=== PATIENT | male | born 1990 | race Caucasian/White ===

== ENCOUNTER 2017-07-21 09:50 | Emergency (ER) | payer SELFPAY ==
[~2017-07-21] VITALS: Ht 185.4 cm; Wt 79.4 kg
--- OUTSIDE RECORDS SUMMARY | 2017-07-21 10:19 | XMS REPORT ---
Author Author JANEENADELINA [facility] Medical Staff Organization [facility] Address [address], [place] [id number] Phone [phone] Summary purpose TRANSITION OF CARE AUTO GENERATION Chief Complaint and Reason for Visit No authorized Reason for Visit (Admitting Diagnosis) is available for this visit. Problem list No authorized problems tracked for continuity of care are available for this visit. Encounters No authorized problems tracked for encounter diagnoses are available for this visit. Medications No medications recorded for this patient visit Allergies, adverse reactions, alerts Allergen Category Ingredient Status Reaction Severity Onset Penicillins Drug Allergy Penicillins Confirmed or Verified Immunizations No immunizations recorded for this patient visit Relevant diagnostic tests and/or laboratory data No authorized results are available for this patient visit History of procedures No procedures recorded for this patient visit. Functional status Functional Status Finding Observation Time Ambulation Asst Dev none :37 Abdomen Appearance flat :37 West no :37 Urination normal :37 Quality sym/unlabored :37 Cough absent :37 Secretions no :37 Airway natural :37 Oxygen no : Temp >100.4 no :37 Temp <96.8 no :37 Chills with rigors no :37 HR > 90bpm yes :37 Respirations > 20 no :37 Systolic <90 no :37 headache stiff neck no :37 Rapid Resp no :30 Nursing Note pt dismissed to home with rxs for clindamycin and hydrocodone, verbalized understanding of all instructions. :15 Vital signs Type Value Date Respiration Rate 18breaths per minute :15 Pulse 87beats per minute :15 Oxygen Saturation 98% :15 BP Systolic 115mmHg :15 BP Diastolic 78mmHg :15 Temperature 98.0F :15 Social history Type Value Smoking Status CURRENT EVERY DAY SMOKER Treatment Plan No treatment plan text is available for this visit. Hospital discharge instructions Dismissal Condition good Disposition on DC home DC Inst/Educ Give yes Med/Side Effects Rev yes PNE Vac none Flu Vac none Tetanus Vac none
--- OUTSIDE RECORDS SUMMARY | 2017-07-21 10:19 | XMS REPORT | Continuity of Care Document ---
Demographics x Preferred Language Unknown Marital Status Unknown Taoist Affiliation Unknown Race Unknown Ethnic Group Unknown Author Author [facility] Organization [facility] Address Unknown Phone Unavailable Allergies Active Description Code Type Severity Reaction Onset Reported/Identified Relationship to Patient Clinical Status Yes Penicillins 476 Drug Allergy N/ A N/A Confirmed or Verified Medications There is no data. Problems There is no data. Procedures There is no data. Results There is no data. Encounters ACCT No. Visit Date/Time Discharge Status Pt. Type Provider Facility Loc./Unit Complaint [id number] 05/04/2015 15:31:00 05/04/2015 16:13:00 DIS Emergency [facility] EMR
--- NOTE | 2017-07-21 10:38 | ED EENT ---
History of Present Illness General Chief Complaint: General Problems/Pain Stated Complaint: MOUTH PAIN,N/V,FEVER Source: patient, other (GF) Exam Limitations: no limitations History of Present Illness Date Seen by Provider: Jul 21, 2017 Time Seen by Provider: 10:25 Initial Comments Patient presents to ER by private conveyance with his significant other and a chief complaint that for the last 2 days she's had significant pain and swelling on the left lower jaw where he has some bad teeth as well as some bleeding from his gums for the past several months. He has not seen a dentist in years. He has been taking Motrin with modest relief of his pain. Also he had some nausea and vomiting 2 days ago and subjective feeling of fever, chills, diaphoresis and concern he might have influenza. He does smoke about a pack a day of cigarettes. Allergies and Home Medications Allergies Uncoded Allergies: PENICILLIN (Allergy, Unknown, 07/21/17) Home Medications Clindamycin HCl 300 Mg Capsule, 300 MG PO TID Prescribed by: RONDA SIMPSON on 07/21/17 1041 Review of Systems Constitutional: chills, diaphoresis, fever, malaise Eyes: Denies Blindness, Denies Blurred Vision, Denies Pain Ears: Denies Dizziness, Denies Pain Nose: denies clots, denies congestion Mouth: denies clots, pain, swelling, bloody discharge Throat: denies pain, denies swelling Respiratory: cough, No phlegm, No short of breath, No wheezing Cardiovascular: No chest pain, No palpitations Gastrointestinal: No abdominal pain, No constipation, nausea, vomiting Musculoskeletal: No joint pain, No joint swelling Past Nxnqxol-Gpfnvc-Wrsyom Hx Patient Social History Alcohol Use: Occasionally Uses Alcohol Beverage of Choice: Beer, Whiskey, Wine, Vodka Recreational Drug Use: No Smoking Status: Current Everyday Smoker Type Used: Cigarettes 2nd Hand Smoke Exposure: Yes Recent Foreign Travel: No Contact w/Someone Who Travel: No Recent Hopitalizations: No Seasonal Allergies Seasonal Allergies: No Surgeries History of Surgeries: No Physical Exam Vital Signs Vital Signs - First Documented 07/21/17 10:30 Temp 97.9 Pulse 102 Resp 16 B/P (MAP) 146/96 (113) Pulse Ox 98 O2 Delivery Room Air General Appearance: WD/WN, no apparent distress Eyes: bilateral eye normal inspection, bilateral eye PERRL, bilateral eye EOMI Ears: bilateral ear auricle normal, bilateral ear canal normal, bilateral ear TM dull, bilateral ear other (mucoid effusion) Nose: normal inspection, No discharge Mouth/Throat: other (extensive dental caries with a upper partial and tenderness, pain but no palpable area of fluctuation either subungual or lateral to the left mandible. Nonbleeding, tender and disease gingiva.) Neck: non-tender, supple, normal inspection Cardiovascular: normal peripheral pulses, regular rate, rhythm Respiratory: no respiratory distress, no accessory muscle use Neurologic/Psychiatric: alert, oriented x 3 Skin: normal color, warm/dry Progress/Results/Core Measures Results/Orders Micro Results Microbiology 07/21/17 Influenza Types A,B Antigen (EMETERIO) - Final, Complete My Orders Orders - RONDA SIMPSON Influenza A And B Antigens (07/21/17 10:32) Vital Signs/I&O Vital Sign - Last 12Hours 07/21/17 10:30 Temp 97.9 Pulse 102 Resp 16 B/P (MAP) 146/96 (113) Pulse Ox 98 O2 Delivery Room Air Progress Note : Time: 10:36 Progress Note Flu swab and we'll put him on an antibiotic and give him sent to the dentist. Departure Impression Impression: Primary Impression: Dental abscess Additional Impressions: Gingivitis Dental caries Influenza B Disposition: 01 HOME, SELF-CARE Condition: Stable Departure-Patient Inst. Decision time for Depature: 11:06 Referrals: NO,LOCAL PHYSICIAN (PCP/Family) Primary Care Physician Patient Instructions: Tooth Abscess (DC) Add. Discharge Instructions: Drink plenty of fluids, brush her teeth and use mouthwash twice a day. 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 Follow-up with a dentist in the next 1-2 weeks. For pain you can use 800 mg ibuprofen every 8 hours until 1000 mg of Tylenol every 6 hours. Heating pad, ice to the jaw will also be helpful. Stay home from work for 5 days and wear a mask if you do have to go in public. All discharge instructions reviewed with patient and/or family. Voiced understanding. Scripts Clindamycin HCl (Clindamycin HCl) 300 Mg Capsule 300 MG PO TID for 7 Days, #21 CAP 0 Refills Prov: RONDA SIMPSON 07/21/17 Work/School Note: Work Release Form Date Seen in the Emergency Department: Jul 21, 2017 Return to Work: Jul 28, 2017 Restrictions: No Restrictions RONDA SIMPSON Jul 21, 2017 10:38
[2017-07-21] MEDS ORDERED: CLIN300C11 PO (10:41)
[2017-07-21] MEDS ORDERED: KETOROLAC 30 MG/ML VIAL IM ONE (11:15)
[2017-07-21 11:26] VITALS: BP 146/96
== END 2017-07-21 11:26 | disposition home or self-care (01) ==
LOC: ER 09:55
DX: K04.7 Periapical abscess without sinus (principal); K05.10 Chronic gingivitis, plaque induced; K02.9 Dental caries, unspecified; J10.1 Influenza due to other identified influenza virus with other respiratory manifestations; F17.210 Nicotine dependence, cigarettes, uncomplicated; Z88.0 Allergy status to penicillin
CPT/HCPCS: 87804; 96372; 99284